=== PATIENT | female | born 1995 | race Two or more races ===

== ENCOUNTER 2019-07-13 14:56 | Emergency (ER) | payer MEDICAID, OTHER ==
[~2019-07-13] VITALS: Ht 154.9 cm; Wt 57.2 kg
--- NOTE | 2019-07-13 16:07 | NUR ---
Patient discharged to home in stable conditon. Written and verbal after care instructions given. Patient verbalizes understanding of instructions. Patient ambulated with stable gait.
[2019-07-13 16:10] VITALS: BP 135/71
== END 2019-07-13 16:11 | disposition home or self-care (01) ==
LOC: ER 15:00
DX: J20.9 Acute bronchitis, unspecified (principal); J01.90 Acute sinusitis, unspecified
CPT/HCPCS: A4663

== ENCOUNTER 2019-12-09 18:31 | Emergency (ER) | payer MEDICAID, OTHER ==
[~2019-12-09] VITALS: Ht 157.5 cm; Wt 54.4 kg
--- NOTE | 2019-12-09 18:55 | NUR ---
Patient discharged to home in stable condition. Written and verbal after care instructions given. Patient verbalizes understanding of instructions. Stressed follow up or return to ER for worsening s/s.
== END 2019-12-09 18:58 | disposition home or self-care (01) ==
LOC: ER 18:33
DX: L03.116 Cellulitis of left lower limb (principal); S80.862A Insect bite (nonvenomous), left lower leg, initial encounter; W57.XXXA Bitten or stung by nonvenomous insect and other nonvenomous arthropods, initial encounter; Y93.89 Activity, other specified; Y92.89 Other specified places as the place of occurrence of the external cause
CPT/HCPCS: A4663

== ENCOUNTER 2021-02-04 22:01 | Emergency (ER) | payer OTHER ==
[~2021-02-04] VITALS: Ht 154.9 cm; Wt 57.2 kg
--- NOTE | 2021-02-04 22:12 | NUR ---
Patient c/o fever, sore throat, vomiting, nausea and sinus pain since yesterday.
--- NOTE | 2021-02-04 22:12 | NUR ---
TOVA MENDEZ at bedside for patient evaluation.
[2021-02-04] MEDS ORDERED: IBUPROFEN 600 MG TABLET PO ONE (22:30)
--- NOTE | 2021-02-04 22:31 | NUR ---
COVID swab/Strep swab sent to Lab at this time.
[2021-02-04] MEDS ORDERED: IBUPROFEN 600 MG TABLET ONE (22:36)
[2021-02-04] MEDS ORDERED: PRED50TA PO (23:10)
[2021-02-04] MEDS ORDERED: ALBU8HFA4 INH (23:10)
[2021-02-04] MEDS ORDERED: BENZ200C53 PO (23:10)
[2021-02-04] MEDS ORDERED: IBUP-1955 PO (23:10)
[2021-02-04] MEDS ORDERED: AZIT250T13 PO (23:12)
[2021-02-04 23:17] VITALS: BP 124/70
--- NOTE | 2021-02-04 23:17 | NUR ---
Patient discharged to home in stable condition. Written and verbal after care instructions given. Patient verbalizes understanding of instructions. Stressed follow up or return to ER for worsening s/s. Ambulated from ER with stable gait. All belongings with patient.
== END 2021-02-04 23:18 | disposition home or self-care (01) ==
LOC: ER 22:02
DX: J02.9 Acute pharyngitis, unspecified (principal); R05 Cough; Z20.822 Contact with and (suspected) exposure to COVID-19
CPT/HCPCS: 86403; 87070; 87077; A4663

== ENCOUNTER 2022-10-16 13:51 | Emergency (ER) | payer MEDICAID, OTHER ==
[~2022-10-16] VITALS: Ht 152.4 cm; Wt 51.3 kg
[~2022-10-16 13:51] MED LIST: ALBU8HFA4 INH; AZIT250T13 PO; BENZ200C53 PO; IBUP-1955 PO; PRED50TA PO
[2022-10-16] MEDS ORDERED: IBUPROFEN 100 MG/5 ML LIQUID UDC PO ONE (14:30)
[2022-10-16 14:55] LABS: HEMATOCRIT 32.8 % (31.2-41.9); MEAN CORPUSCULAR HEMOGLOBIN 24.4 uug (24.7-32.8); MEAN CORPUSCULAR VOLUME 77.5 fL (75.5-95.3); PLATELET COUNT (AUTO) 300 K/uL (179-408)
[2022-10-16 15:26] LABS: CARBON DIOXIDE 25 mmol/L (21-32); CHLORIDE 105 mmol/L (98-107); CREATININE 0.5 mg/dL (0.6-1.3); GLUCOSE 85 mg/dL (74-106); POTASSIUM 3.8 mmol/L (3.5-5.1); UREA NITROGEN, BLOOD 6 mg/dL (7-18)
== END 2022-10-16 16:08 | disposition home or self-care (01) ==
LOC: ER 14:07
DX: O20.0 Threatened abortion (principal); Z79.1 Long term (current) use of non-steroidal anti-inflammatories (NSAID); Z79.2 Long term (current) use of antibiotics; Z79.899 Other long term (current) drug therapy; Z3A.01 Less than 8 weeks gestation of pregnancy
CPT/HCPCS: 85025; 85730; 86850; 86900; 86901; A4663

== ENCOUNTER → 2022-12-02 | Emergency (ER) | payer MEDICAID ==
[~2022-12-02] VITALS: Ht 152.4 cm; Wt 52.2 kg
--- NOTE | 2022-12-02 13:26 | NUR ---
seen and examined by
[2022-12-02 13:38] LABS: HEMATOCRIT 37.3 % (31.2-41.9); MEAN CORPUSCULAR HEMOGLOBIN 27.3 uug (24.7-32.8); MEAN CORPUSCULAR VOLUME 83.5 fL (75.5-95.3); PLATELET COUNT (AUTO) 277 K/uL (179-408)
[2022-12-02 13:42] LABS: *BILIRUBIN,URIN NEGATIVE (NEGATIVE); *CLARITY,URINE CLEAR (CLEAR); *COLOR,URINE YELLOW (YELLOW); *KETONES,URINE NEGATIVE (NEGATIVE); *UROBILINOGEN,URINE 0.2 E.U./dl (NORMAL); LEUKOCYTE ESTERASE ,URINE 1+ (NEGATIVE); NITRITE, URINE NEGATIVE (NEGATIVE); UGLUCOSE NEGATIVE (NEGATIVE)
[2022-12-02 13:46] LABS: *BLOOD, URINE TRACE (NEGATIVE)
[2022-12-02 13:49] LABS: CARBON DIOXIDE 22 mmol/L (21-32); CHLORIDE 102 mmol/L (98-107); CREATININE 0.4 mg/dL (0.6-1.3); GLUCOSE 78 mg/dL (74-106); POTASSIUM 3.8 mmol/L (3.5-5.1); UREA NITROGEN, BLOOD 5 mg/dL (7-18)
[2022-12-02 14:47] LABS: BACTERIA,URINE MODERATE /HPF (NONE SEEN); RBC,URINE 0-3 /HPF (0-3); SQUAMOUS EPITHELIAL CELL,UR MODERATE /HPF (NONE SEEN)
[2022-12-02 15:24] VITALS: BP 122/76
== END | disposition home or self-care (01) ==
LOC: ER 12:52
DX: O20.0 Threatened abortion (principal); Z3A.12 12 weeks gestation of pregnancy
CPT/HCPCS: 36415; 76856; 85025; 86850; 86900; 86901; A4663